=== PATIENT | male | born 1985 | race Two or more races ===

== ENCOUNTER 2024-10-07 09:13 | Inpatient (IN) | payer MEDICAID, OTHER ==
[~2024-10-07] VITALS: Ht 154.9 cm; Wt 89.8 kg
[2024-10-07 10:16] LABS: COVID AG,FIA SOURCE NASAL SWAB
[2024-10-07 10:28] LABS: BASOPHILS % (AUTO) 0.3 % (0.0-2.0); EOSINOPHILS % (AUTO) 0.6 % (1.0-6.0); HEMATOCRIT 39.8 % (41-53); HEMOGLOBIN 13.7 g/dL (13.5-17.5); LYMPHOCYTES # (AUTO) 1.6 K/uL (1.0-4.8); LYMPHOCYTES % (AUTO) 19.8 % (22.0-44.0); MEAN CORPUSCULAR HEMOGLOBIN 30.2 pg (26.0-34.0); MEAN CORPUSCULAR HGB CONC 34.5 G/dL (31.0-37.0); MEAN CORPUSCULAR VOLUME 88 fL (80-100); MONOCYTES # (AUTO) 0.8 K/uL (0.1-1.0); MONOCYTES % (AUTO) 10.2 % (2.0-9.0); NEUTROPHILS # (AUTO) 5.7 K/uL (1.8-7.7); NEUTROPHILS % (AUTO) 69.1 % (40.0-70.0); PLATELET COUNT (AUTO) 228 K/uL (150-450); RED BLOOD CELL COUNT(AUTO) 4.54 MIL/uL (4.50-5.90); RED CELL DISTRIBUTION WIDTH 13.3 % (11.5-14.5); WHITE BLOOD COUNT (AUTO) 8.3 K/uL (4.5-11.0)
[2024-10-07 10:37] LABS: ANION GAP 10 mmol/L (8-16); CARBON DIOXIDE 26 mmol/L (22-29); CHLORIDE 101 mmol/L (98-107); CREATININE 1.08 mg/dL (0.60-1.30); GLOMERULAR FILTR. RATE CALC > 60 mL/min (>60); GLUCOSE,RANDOM 69 mg/dL (70-110); POTASSIUM 3.2 mmol/L (3.5-5.1); SODIUM SERUM 137 mmol/L (136-145); UREA NITROGEN, BLOOD 15 mg/dL (7-18)
[2024-10-07 10:43] LABS: SARS-COV2 (COVID) ANTIGEN,FIA Negative (Negative)
[2024-10-07] MEDS: POTASSIUM CHLORIDE 20 MEQ ER TABLET PO ONE (15:29)
[2024-10-07 16:20] VITALS: BP 109/69; PULSE 75; RESP 18; TEMP 96.5; O2SAT 100
[2024-10-07 17:40] LABS: GLUCOMETER DEV NAME(LOC) BV3S.2; GLUCOSE,POINT OF CARE 185 MG/DL (70-110)
[2024-10-07] MEDS ORDERED: GLUCAGON,HUMAN RECOMBINANT 1 MG VIAL IM PRN (20:15)
[2024-10-07 20:45] VITALS: BP 110/62; PULSE 62; RESP 16; TEMP 98.1; O2SAT 97
[2024-10-07 22:16] LABS: GLUCOMETER DEV NAME(LOC) BV3S.2; GLUCOSE,POINT OF CARE 113 MG/DL (70-110)
[2024-10-08 06:31] LABS: GLUCOMETER DEV NAME(LOC) BV3S.2; GLUCOSE,POINT OF CARE 107 MG/DL (70-110)
[2024-10-08 08:39] VITALS: BP 94/60; PULSE 70; RESP 17; TEMP 97.7; O2SAT 96
[2024-10-08] MEDS ORDERED: PETROLATUM,WHITE 28 GM JELLY TP PRN (10:15)
[2024-10-08] MEDS ORDERED: LOPERAMIDE HCL 2 MG CAPSULE PO PRN (10:15)
[2024-10-08] MEDS ORDERED: ACETAMINOPHEN 325 MG TABLET PO PRN (10:15)
[2024-10-08] MEDS ORDERED: DOCUSATE SODIUM 100 MG CAPSULE PO PRN (10:15)
[2024-10-08] MEDS ORDERED: BENZOCAINE/MENTHOL [CEPACOL] LOZENGE PO PRN (10:15)
[2024-10-08] MEDS ORDERED: MAGNESIUM HYDROXIDE SUSPENSION 30 ML UDCUP PO PRN (10:15)
[2024-10-08] MEDS ORDERED: IBUPROFEN 600 MG TABLET PO PRN (10:15)
[2024-10-08] MEDS ORDERED: ALBUTEROL SULFATE HFA 90 MCG/PUFF 8 GM INHALER IH PRN (10:15)
[2024-10-08] MEDS ORDERED: BACITRACIN 28 GM OINTMENT TP PRN (10:15)
[2024-10-08] MEDS ORDERED: MAG HYDROX/ALUMINUM HYD/SIMETH ES 30 ML SUSPENSION UDCUP PO PRN (10:15)
[2024-10-08] MEDS ORDERED: CloNIDine HCL 0.1 MG TABLET PO PRN (10:15)
[2024-10-08] MEDS ORDERED: OMEPRAZOLE 20 MG CAPSULE PO PRN (10:15)
[2024-10-08] MEDS ORDERED: ONDANSETRON 4 MG TABLET PO PRN (10:15)
[2024-10-08 11:30] LABS: GLUCOMETER DEV NAME(LOC) BV3S.2; GLUCOSE,POINT OF CARE 103 MG/DL (70-110)
[2024-10-08 16:50] LABS: GLUCOMETER DEV NAME(LOC) BV3S.2; GLUCOSE,POINT OF CARE 142 MG/DL (70-110)
[2024-10-08] MEDS: RisperiDONE 1 MG TABLET PO SCH (17:52)
[2024-10-08 20:37] VITALS: BP 106/63; PULSE 75; RESP 18; TEMP 97.4; O2SAT 98
[2024-10-09 06:46] LABS: GLUCOMETER DEV NAME(LOC) BV3S.2; GLUCOSE,POINT OF CARE 127 MG/DL (70-110)
[2024-10-09] MEDS: LORazepam 2 MG TABLET PO PRN (08:11)
[2024-10-09 08:14] LABS: BASOPHILS % (AUTO) 0.6 % (0.0-2.0); EOSINOPHILS % (AUTO) 3.3 % (1.0-6.0); HEMATOCRIT 39.7 % (41-53); HEMOGLOBIN 13.3 g/dL (13.5-17.5); LYMPHOCYTES % (AUTO) 25.8 % (22.0-44.0); MEAN CORPUSCULAR HEMOGLOBIN 29.5 pg (26.0-34.0); MEAN CORPUSCULAR HGB CONC 33.5 G/dL (31.0-37.0); MEAN CORPUSCULAR VOLUME 88 fL (80-100); MONOCYTES # (AUTO) 0.6 K/uL (0.1-1.0); MONOCYTES % (AUTO) 7.2 % (2.0-9.0); NEUTROPHILS # (AUTO) 4.9 K/uL (1.8-7.7); NEUTROPHILS % (AUTO) 63.1 % (40.0-70.0); PLATELET COUNT (AUTO) 226 K/uL (150-450); RED CELL DISTRIBUTION WIDTH 13.4 % (11.5-14.5); WHITE BLOOD COUNT (AUTO) 7.7 K/uL (4.5-11.0)
[2024-10-09 08:34] LABS: ALANINE AMINOTRANSFERASE 48 U/L (12-78); ALBUMIN 3.2 g/dL (3.4-5.0); ALKALINE PHOSPHATASE 83 U/L (46-116); ANION GAP 8 mmol/L (8-16); ASPARTATE AMINOTRANSFERASE 23 U/L (15-37); BILIRUBIN,TOTAL 0.3 mg/dL (0.1-1.0); CALCIUM, TOTAL 8.6 mg/dL (8.8-10.5); CARBON DIOXIDE 28 mmol/L (22-29); CHLORIDE 103 mmol/L (98-107); CHOL/HDL RATIO 4.4 (4.2-7.3); CHOLESTEROL 158 mg/dL (131-200); CREATININE 0.79 mg/dL (0.60-1.30); GLOMERULAR FILTR. RATE CALC > 60 mL/min (>60); GLUCOSE,RANDOM 92 mg/dL (70-110); HDL CHOLESTEROL 36 mg/dL (40-60); LDL CHOL (CALC.) 109 mg/dL (0-130); POTASSIUM 3.6 mmol/L (3.5-5.1); SODIUM SERUM 139 mmol/L (136-145); TOTAL PROTEIN, SERUM 6.4 g/dL (6.4-8.2); TRIGLYCERIDES 64 mg/dL (15-150); UREA NITROGEN, BLOOD 9 mg/dL (7-18)
[2024-10-09 08:39] LABS: HEMOGLOBIN A1C 6.2 % (3.8-5.6)
[2024-10-09 12:52] VITALS: BP 107/73; PULSE 91; RESP 17; TEMP 98.2; O2SAT 99
[2024-10-09 16:30] LABS: GLUCOMETER DEV NAME(LOC) BV3S.2; GLUCOSE,POINT OF CARE 107 MG/DL (70-110)
[2024-10-09 16:30] LABS: GLUCOMETER DEV NAME(LOC) BV3S.2; GLUCOSE,POINT OF CARE 100 MG/DL (70-110)
[2024-10-09 20:26] LABS: GLUCOMETER DEV NAME(LOC) BV3S.2; GLUCOSE,POINT OF CARE 130 MG/DL (70-110)
[2024-10-09 20:32] VITALS: BP 100/75; PULSE 78; RESP 18; TEMP 97.9; O2SAT 99
[2024-10-10 06:41] LABS: GLUCOMETER DEV NAME(LOC) BV3S.2; GLUCOSE,POINT OF CARE 105 MG/DL (70-110)
[2024-10-10 09:15] VITALS: BP 103/79; PULSE 86; RESP 18; TEMP 97.5; O2SAT 99
[2024-10-10 12:20] LABS: GLUCOMETER DEV NAME(LOC) BV3S.2; GLUCOSE,POINT OF CARE 98 MG/DL (70-110)
[2024-10-10 17:01] LABS: GLUCOMETER DEV NAME(LOC) BV3S.2; GLUCOSE,POINT OF CARE 100 MG/DL (70-110)
[2024-10-10] MEDS: haloperidoL 5 MG TABLET PO PRN (18:38)
[2024-10-10] MEDS: INSULIN LISPRO 100 UNITS/ML SQ PRN (21:27)
[2024-10-10 22:01] VITALS: RESP 18
[2024-10-10 23:41] LABS: GLUCOMETER DEV NAME(LOC) BV3S.2; GLUCOSE,POINT OF CARE 170 MG/DL (70-110)
[2024-10-11 06:25] LABS: GLUCOMETER DEV NAME(LOC) BV3S.2; GLUCOSE,POINT OF CARE 110 MG/DL (70-110)
[2024-10-11 11:36] LABS: GLUCOMETER DEV NAME(LOC) BV3S.2; GLUCOSE,POINT OF CARE 103 MG/DL (70-110)
[2024-10-11 11:43] VITALS: BP 99/63; PULSE 84; RESP 12; TEMP 97.9; O2SAT 99
[2024-10-11 16:55] LABS: GLUCOMETER DEV NAME(LOC) BV3S.2; GLUCOSE,POINT OF CARE 123 MG/DL (70-110)
[2024-10-11 20:12] VITALS: BP 115/81; PULSE 89; RESP 17; TEMP 97.4; O2SAT 100
[2024-10-12 06:20] LABS: GLUCOMETER DEV NAME(LOC) BV3S.2; GLUCOSE,POINT OF CARE 113 MG/DL (70-110)
[2024-10-12 09:30] VITALS: BP 98/61; PULSE 89; RESP 16; TEMP 98; O2SAT 98
[2024-10-12 11:55] LABS: GLUCOMETER DEV NAME(LOC) BV3S.2; GLUCOSE,POINT OF CARE 109 MG/DL (70-110)
[2024-10-12 16:41] LABS: GLUCOMETER DEV NAME(LOC) BV3S.2; GLUCOSE,POINT OF CARE 104 MG/DL (70-110)
[2024-10-12 20:06] VITALS: BP 104/65; PULSE 88; RESP 18; TEMP 97.3; O2SAT 100
[2024-10-12 20:36] LABS: GLUCOMETER DEV NAME(LOC) BV3S.2; GLUCOSE,POINT OF CARE 112 MG/DL (70-110)
[2024-10-13 06:31] LABS: GLUCOMETER DEV NAME(LOC) BV3S.2; GLUCOSE,POINT OF CARE 105 MG/DL (70-110)
[2024-10-13 08:19] VITALS: BP 99/60; PULSE 71; RESP 17; TEMP 97.9; O2SAT 99
[2024-10-13 12:01] LABS: GLUCOMETER DEV NAME(LOC) BV3S.2; GLUCOSE,POINT OF CARE 111 MG/DL (70-110)
[2024-10-13] MEDS ORDERED: RISP-31 PO (12:39)
== END 2024-10-13 17:01 | disposition home or self-care (01) | DRG 750 ==
LOC: EMS 09:13 → B3A 14:58
PROVIDERS: ADMIT Psychiatry & Neurology Psychiatry; ATTEND Psychiatry & Neurology Psychiatry
PROC: GZHZZZZ Group Psychotherapy (ICD-10-PCS; principal; 2024-10-09)
PROC: GZ52ZZZ Individual Psychotherapy, Cognitive (ICD-10-PCS; 2024-10-09)
DX: F25.1 Schizoaffective disorder, depressive type (principal); E11.9 Type 2 diabetes mellitus without complications; E66.9 Obesity, unspecified; Z20.822 Contact with and (suspected) exposure to COVID-19; F41.9 Anxiety disorder, unspecified; G47.00 Insomnia, unspecified; K21.9 Gastro-esophageal reflux disease without esophagitis; K59.00 Constipation, unspecified; F15.10 Other stimulant abuse, uncomplicated
CPT/HCPCS: 80048; 80053; 80061; 82962; 83036; 84443; 85025; 99285; G0480; 36415-L1; 36415-TC; Z7502; Z7610